=== PATIENT | male | born 1950 | race Caucasian/White ===

== ENCOUNTER 2016-04-04 17:13 | Emergency (ER) | payer OTHER, MEDICARE ==
[2016-04-04] MEDS ORDERED: ASPIRIN 81 MG CHEW TAB ONE (17:36)
== END 2016-04-04 20:50 | disposition other institution (70) ==
LOC: ER 17:13
DX: R07.89 Other chest pain (principal); J44.9 Chronic obstructive pulmonary disease, unspecified; I10 Essential (primary) hypertension; E78.00 Pure hypercholesterolemia, unspecified; F41.1 Generalized anxiety disorder; K21.9 Gastro-esophageal reflux disease without esophagitis; Z95.5 Presence of coronary angioplasty implant and graft; Z86.73 Personal history of transient ischemic attack (TIA), and cerebral infarction without residual deficits; F17.210 Nicotine dependence, cigarettes, uncomplicated
CPT/HCPCS: 36415; 71010; 80053; 82550; 83735; 84484; 85025; 85610; 85730; 93005